=== PATIENT | female | born 1970 | race American Indian/Alaskan Native ===

== ENCOUNTER 2020-05-24 07:23 | Day surgery (SDC) | payer OTHER ==
[~2020-05-24 07:23] MED LIST: Lactated Ringers 1,000 ML IV SCH; Lidocaine 2% 5 ML SDV ONE; Midazolam 1 MG/ML 2 ML SDV ONE; Propofol 200 MG/20 ML SDV ONE; fentaNYL 100 MCG/2 ML SDV ONE
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
[2020-05-24] MEDS ORDERED: Propofol 200 MG/20 ML SDV ONE ×2 (09:10→10:07)
--- NOTE | 2020-05-24 09:26 | PCM.OPNOTE ---
- General Post-Op/Procedure Note Date of Surgery/Procedure: 05/24/20 Operative Procedure(s): egd w bx. colonoscope w snare Findings: see [id number] Pre Op Diagnosis: brbpr and gerd Post-Op Diagnosis: Same Anesthesia Technique: Moderate Sedation Primary Surgeon: Jaspreet Brizuela Pathology: egd bx colon small polyps around 110 cm when scope went out 10 mm pedunculated pollyp snare at 70cm when scope went out Complications: None Condition: Good
--- NOTE | 2020-05-24 09:45 | PCM.POSTAN ---
POST ANESTHESIA ASSESSMENT - MENTAL STATUS Mental Status: Alert, Oriented - VITAL SIGNS Vital Signs: Last Vital Signs Temp 36.3 C 05/24/20 07:28 Pulse 58 L 05/24/20 09:41 Resp 13 05/24/20 09:41 BP 103/46 L 05/24/20 09:41 Pulse Ox 96 05/24/20 09:41 - RESPIRATORY Respiratory Status: Respiratory Rate WNL, Airway Patent, O2 Saturation Stable - CARDIOVASCULAR CV Status: Pulse Rate WNL, Blood Pressure Stable - GASTROINTESTINAL GI Status: No Symptoms - PAIN Pain Score: 0 - POST OP HYDRATION Hydration Status: Adequate & Stable - OBSERVATIONS Free Text/Narrative:: No anesthesia problems
[2020-05-24 09:59] VITALS: BP 90/49; PULSE 59
--- NOTE | 2020-05-24 10:15 | PCM48HPAN ---
Post Anesthesia Note - EVALUATION WITHIN 48HRS OF ANESTHETIC Vital Signs in Normal Range: Yes Patient Participated in Evaluation: Yes Respiratory Function Stable: Yes Airway Patent: Yes Cardiovascular Function Stable: Yes Hydration Status Stable: Yes Pain Control Satisfactory: Yes Nausea and Vomiting Control Satisfactory: Yes Mental Status Recovered: Yes Vital Signs: Last Vital Signs Temp 36.1 C 05/24/20 09:47 Pulse 59 L 05/24/20 09:47 Resp 14 05/24/20 09:47 BP 90/49 L 05/24/20 09:47 Pulse Ox 100 05/24/20 09:47 - COMMENTS/OBSERVATIONS Free Text/Narrative:: No anesthesia problems
--- NOTE | 2020-05-24 11:10 | OR ---
SURGEON: Jaspreet Brizuela MD DATE OF PROCEDURE: 05/24/2020 PRIMARY SURGEON: Jaspreet Brizuela MD PROCEDURE PERFORMED: 1. Esophagogastroduodenoscopy with biopsy. 2. Colonoscopy with snare. DESCRIPTION OF PROCEDURE: EGD: The patient was taken to the endoscopy room, and with the TELEHEALTH NURSE EDUCATOR, Diprivan was administered. A well-lubricated EGD scope was gently inserted through the oropharynx, down the esophagus, passing through the gastroesophageal junction, into the stomach. The mucosa was examined upon the passage. Any etiology will be noted. Once in the stomach, we continued to advance to the distal antrum, passed through the pylorus into the second portion of the duodenum. Again, the mucosa was examined for any abnormality and etiology. The scope was then retrieved back to the stomach and then retroflexed to look at the fundus of the stomach. If a biopsy was indicated, we will biopsy the antrum, body, and gastroesophageal junction. The air will be sucked out while the scope is retrieved to reduce the patient's discomfort. The patient tolerated the procedure well. There were no intraoperative complications. Dr. Brizuela was present through the whole procedure. Prior to surgery, a time-out had been called, the patient identified, procedure identified and antibiotic administered. The patient was taken to the endoscopy room. A time out was called, patient identified, and procedure identified. Diprivan was then administrated. Patient went from awake to sleep, hearing doctor talking or door closing is normal. Perineum inspection and digital examination were then performed. A well- lubricated colonoscope was gently inserted through the rectum, advanced past the rectosigmoid junction, the descending colon, splenic flexure, transverse colon, hepatic flexure, ascending colon, arrived to the cecum. Cecum was identified as dictated in the finding. Then the scope was carefully withdrawn while attention was paid to the mucosal surface for any abnormality. Air will be sucked out during the scope withdrawal. At the rectum, retroflexed to examine any rectal diseases, fistula or hemorrhoids. During mucosal examination, abnormality or polyp encountered. Using snare equipment, the abnormality or the polyp was then snared off using electrocautery. The Patient tolerated procedure well. There were no intraoperative complications, and Dr. Brizuela was present throughout the whole procedure. EGD FINDINGS: 1. The patient is easily sedated, is soundly snoring, and with TELEHEALTH NURSE EDUCATOR and Diprivan. 2. Oropharynx and proximal esophagus are free of disease. No stricture or inflammation and no varicosity. Distal esophagus at GE junction at 40 shows mild salmon-colored change suggestive of mild acid reflux. Stomach rugae is normal in appearance. Antrum is fine. Duodenum is fine, and on retroflexed look at the fundus, there is a very small hiatal hernia. Biopsy done at antrum, body, GE junction at 40, and sucked out the gas while scope pulling out. During the whole study, there was no food particle, bile, or blood. COLONOSCOPY FINDINGS: 1. The patient is easily sedated with TELEHEALTH NURSE EDUCATOR and Diprivan. The patient is soundly snoring. 2. Bowel prep is average with moderate amount of liquid stool, no semi-formed stool. 3. Colon is rather straightforward. Cecum indicated by ileocecal fold, one-to- one indentation, and appendiceal orifice. Light emittance is not observed, and ScopeGuide is not available today. Mucosa examined upon scope pulling out. The patient has several small polyps at the area of 120. They are all less than 2 mm. Cold biopsy forceps removed 3 of them and then at distance 70, there is a 10 mm pedunculated polyp. It was snared and captured and sent for pathology and also tattooed. At the previous tattooed area of 120, there is nothing over there, so it is clean and then I also tattooed at 90. They looked very irregular, but there is nothing, so the 120 was previously tattooed and 90 was newly tattooed today, and then the final area at 70 of the removal of the pedunculated polyp that is also tattooed and then at 25 at the previous tattooed area, that is clean, no polyp. The patient does not have diverticulosis, and has some internal hemorrhoids. The patient would benefit from repeat colonoscopy from the pathology of the polyp. MINAL / SHARRI /[id number]
== END 2020-05-24 10:27 | disposition home or self-care (01) ==
LOC: MW.SDS 07:23
PROVIDERS: ATTEND Surgery
DX: D12.6 Benign neoplasm of colon, unspecified (principal); K29.50 Unspecified chronic gastritis without bleeding; K21.9 Gastro-esophageal reflux disease without esophagitis; K44.9 Diaphragmatic hernia without obstruction or gangrene; K64.8 Other hemorrhoids; K59.00 Constipation, unspecified; I10 Essential (primary) hypertension; J45.909 Unspecified asthma, uncomplicated; F17.210 Nicotine dependence, cigarettes, uncomplicated; Z91.030 Bee allergy status; Z88.1 Allergy status to other antibiotic agents; Z88.0 Allergy status to penicillin; Z88.8 Allergy status to other drugs, medicaments and biological substances; Z79.51 Long term (current) use of inhaled steroids; Z79.899 Other long term (current) drug therapy; Z90.49 Acquired absence of other specified parts of digestive tract; Z98.890 Other specified postprocedural states; Z82.3 Family history of stroke
CPT/HCPCS: 43239; 45380; 45381; 45385; 88305; 88312; J2250; J2704; J3010; J7120; 00813

== ENCOUNTER 2022-02-15 09:01 | Day surgery (SDC) | payer OTHER, MEDICAID ==
[~2022-02-15 09:01] MED LIST changes: -Lidocaine 2% 5 ML SDV ONE; -Midazolam 1 MG/ML 2 ML SDV ONE
[2022-02-15 11:23] VITALS: PULSE 65
[2022-02-15 11:33] VITALS: BP 105/58
== END 2022-02-15 11:40 | disposition home or self-care (01) ==
LOC: MW.SDS 09:01
PROVIDERS: ATTEND Surgery
DX: Z12.11 Encounter for screening for malignant neoplasm of colon (principal); D12.6 Benign neoplasm of colon, unspecified; F17.210 Nicotine dependence, cigarettes, uncomplicated; I10 Essential (primary) hypertension; K21.9 Gastro-esophageal reflux disease without esophagitis; M19.90 Unspecified osteoarthritis, unspecified site; G43.909 Migraine, unspecified, not intractable, without status migrainosus; B96.81 Helicobacter pylori [H. pylori] as the cause of diseases classified elsewhere; Z86.010 Personal history of colon polyps; Z90.49 Acquired absence of other specified parts of digestive tract; Z90.710 Acquired absence of both cervix and uterus; Z88.0 Allergy status to penicillin; Z88.1 Allergy status to other antibiotic agents; Z91.030 Bee allergy status; Z88.8 Allergy status to other drugs, medicaments and biological substances; Z98.890 Other specified postprocedural states; Z79.899 Other long term (current) drug therapy
CPT/HCPCS: 45380; J2704; J3010; J7120; 00812